=== PATIENT | female | born 1985 | race Caucasian/White ===

== ENCOUNTER → 2018-06-30 17:36 | Outpatient (CLI) | payer BC, SELFPAY ==
[2018-07-08 13:21] LABS: HPV HC, High Risk Negative (Negative)
== END ==
PROVIDERS: Referring Provider Obstetrics & Gynecology; Visit Provider Obstetrics & Gynecology
DX: Z12.4 Encounter for screening for malignant neoplasm of cervix (principal)
CPT/HCPCS: 87624; 88175; G0145

== ENCOUNTER → 2019-04-14 17:45 | Outpatient (CLI) | payer BC, SELFPAY ==
[2019-04-14 14:38] VITALS: BMI 35.4
== END ==
PROVIDERS: Visit Provider Obstetrics & Gynecology
DX: N76.0 Acute vaginitis (principal)
CPT/HCPCS: 87070; 87205

== ENCOUNTER → 2019-04-25 12:41 | Outpatient (CLI) | payer BC, SELFPAY ==
[2019-04-25 11:09] VITALS: BMI 35.4
== END ==
PROVIDERS: Referring Provider Obstetrics & Gynecology; Visit Provider Obstetrics & Gynecology
DX: O23.40 Unspecified infection of urinary tract in pregnancy, unspecified trimester (principal); B95.1 Streptococcus, group B, as the cause of diseases classified elsewhere; Z3A.00 Weeks of gestation of pregnancy not specified
CPT/HCPCS: 87077; 87086; 87088; 87186

== ENCOUNTER → 2019-06-09 12:13 | Outpatient (CLI) | payer BC, SELFPAY ==
[2019-05-24 08:47] VITALS: BMI 35.4
--- NOTE | 2019-06-09 12:17 | US_ITS ---
STUDY: SECOND AND THIRD TRIMESTER OBSTETRICAL ULTRASOUND REASON FOR EXAM: Female, 34 years old. Routine survey. LMP: Unknown. TECHNIQUE: Transabdominal TECHNICAL QUALITY: Adequate. PRIOR ULTRASOUND: None. FINDINGS: There is a single intrauterine fetus. The fetus is in an transverse lie with the head on the maternal left side. There is demonstrated cardiac activity with a heart rate of 133 bpm. There is a normal amniotic fluid volume. The placenta is posterior in location and is not low lying. There are Grade 1 placental changes. The cervix measures 6.3 cm in length. The bilateral adnexal regions are normal. BIOMETRY: BPD: 5.4 cm: 22 weeks, 4 days HC: 20.1 cm: 22 weeks, 2 days AC: 17.2 cm: 22 weeks, 1 days FL: 3.8 cm: 22 weeks, 3 days age by current US: 22 weeks, 3 days. SHAQ by current US: 10/10/2019. Estimated weight: 486 grams, +/- 71 grams, 56 %. Age by LMP: 22 weeks, 0 days. SHAQ by LMP: 10/13/2019. ANATOMY: Gender: Male Cranium: Normal lateral ventricles. Normal choroid plexus. Normal cerebellum. Normal cisterna magna. Normal face, nose and lips. Chest: Normal 4-chamber heart. Abdomen/Pelvis: Normal diaphragm. Normal stomach. Normal abdominal wall. Normal cord insertion. Normal 3 vessel cord. Normal kidneys. Normal bladder. Spine: Normal cervical spine. Normal thoracic spine. Normal lumbar spine. Normal sacrum. Extremities: Normal bilateral upper extremities. Normal bilateral lower extremities. US/OB Anatomy Scan IMPRESSION: Single live intrauterine at 22 weeks, 3 days by current ultrasound SHAQ of 10/10/2019. Heart rate of 133 bpm. No suspicious sonographic findings. Electronically Signed: Steffen Cerda MD at 14:03 EDT , Service support ,
== END ==
PROVIDERS: Family Provider Family Medicine; PCP Family Medicine; Referring Provider Obstetrics & Gynecology; Visit Provider Obstetrics & Gynecology
DX: O09.90 Supervision of high risk pregnancy, unspecified, unspecified trimester (principal)
CPT/HCPCS: 76805

== ENCOUNTER → 2019-07-20 09:46 | Outpatient (CLI) | payer BC, SELFPAY ==
[2019-07-20 09:23] VITALS: BMI 35.4
[2019-07-20 10:38] LABS: Absolute Lymphocyte Count 1.44 X10^3/uL (0.83-4.51); Absolute Neutrophil Count 8.8 X10^3/uL (2.0-7.7); Basophil# 0.03 X10^3/uL; Basophil% 0.3 % (0-1); Eosinophil# 0.14 X10^3/uL; Eosinophils% 1.3 % (0-5); Hematocrit 33.8 % (37-47); Hemoglobin 11.3 g/dL (12.0-15.0); Lymphocyte # 1.44 X10^3/ul (4.0); Mean Corp Hgb Conc 33.4 g/dL (32-36); Mean Corpuscular Hgb 28.3 pg (27.0-32.0); Mean Corpuscular Volume 84.7 fL (81-99); Mean Platelet Vol. 10.9 fl (6.2-12.0); Monocyte# 0.57 X10^3/uL; Monocyte% 5.1 % (0-10); NRBC Flagged by Analyzer 0 % (0-5); Neutrophil # 8.81 X10^3/uL (2.7-7.7); Neutrophil % 79.5 % (47-70); Platelet Count 167 K/mm3 (150-450); RBC Distribution Width CV 14.6 % (11.6-14.6); RBC Distribution Width SD 44.4 fl (35.1-43.9); Red Blood Count 3.99 M/mm3 (4.2-5.4); White Blood Count 11.1 K/mm3 (4.4-11.0)
[2019-07-20 10:47] LABS: Glucose Challenge Gest 1H 50g 119 mg/dL (70-140)
== END ==
PROVIDERS: Nurse Practitioner Women's Health; Family Provider Family Medicine; PCP Family Medicine; Referring Provider Obstetrics & Gynecology; Visit Provider Obstetrics & Gynecology
DX: O09.90 Supervision of high risk pregnancy, unspecified, unspecified trimester (principal); Z3A.00 Weeks of gestation of pregnancy not specified
CPT/HCPCS: 36415; 82950; 85025

== ENCOUNTER → 2019-09-16 17:04 | Outpatient (CLI) | payer BC, SELFPAY ==
[2019-09-16 08:37] VITALS: BMI 35.4
== END ==
PROVIDERS: Family Provider Family Medicine; PCP Family Medicine; Referring Provider Obstetrics & Gynecology; Visit Provider Obstetrics & Gynecology
DX: O09.90 Supervision of high risk pregnancy, unspecified, unspecified trimester (principal); Z3A.00 Weeks of gestation of pregnancy not specified
CPT/HCPCS: 87077; 87081; 87186

== ENCOUNTER 2019-10-19 19:10 | Outpatient (CLI) | payer BC, SELFPAY ==
[2019-10-13 08:33] VITALS: BMI 35.4
[2019-10-19 19:20] VITALS: BMI 40.8
--- NOTE | 2019-10-19 21:28 | OB.TRI.PN_ITS ---
Progress Notes Date of Service: 10/19/19 Progress Note: FHT: 135 Moderate variability reactive no decelerations category I tracing [place]: no regular Contractions postdates plan IOL tomorrow - Problem List (1) Post-dates Status: Acute Multi Select Codes - Urinary/Genital Urinary/Genital CPT Codes: 99532-13 non-stress test Interp
== END 2019-10-19 20:20 | disposition home or self-care (01) ==
LOC: WPOUT 19:17 → WP 19:18
PROVIDERS: PCP Family Medicine; Visit Provider Obstetrics & Gynecology
DX: O48.0 Post-term pregnancy (principal); Z3A.00 Weeks of gestation of pregnancy not specified
CPT/HCPCS: 59025; 59050; 99218; G0378

== ENCOUNTER 2019-10-20 07:00 | Inpatient (IN) | payer BC, SELFPAY ==
[2019-09-22 09:09] VITALS: BMI 35.4
[2019-10-19 19:20] VITALS: BMI 40.8
--- NOTE | 2019-10-20 04:33 | PCM.HPOB.BLA ---
- Problem List (1) Post-dates Status: Acute (2) Contraception management Status: Acute Qualifiers: Contraceptive encounter type: other general counseling and advice Qualified Code(s): Z30.09 - Encounter for other general counseling and advice on contraception Comment: IUD 6 wk pp- No PA required Kamila.H. 1009 07/21/19 (3) GBS (group B streptococcus) UTI complicating Status: Acute Qualifiers: Trimester: second trimester Qualified Code(s): O23.42 - Unspecified infection of urinary tract in , second trimester; B95.1 - Streptococcus, group B, as the cause of diseases classified elsewhere Comment: plan PCN in labor (4) Status: Acute Qualifiers: Weeks of gestation: 40 weeks Qualified Code(s): Z3A.40 - 40 weeks gestation of Comment: Foresight carrier screen- negative, low risk nipt, declines afp screening. US normal (5) Rh negative status during Status: Acute Qualifiers: Trimester: second trimester Qualified Code(s): O26.892 - Other specified related conditions, second trimester; Z67.91 - Unspecified blood type, Rh negative Comment: rhogam at 28 weeks and PRN (6) Supervision of high risk , antepartum Status: Acute Comment: PRR SHAQ 10/13/19 boy Long Kang ANDREAS RGI, FET/PGT History and Physical Date of Admission: 10/20/19 Intake Vital Signs 10/13/19 BMI 35.4 10/13/19 Height 5 ft 2 in 10/13/19 Weight: 223 lb 10/13/19 BMI 40.8 10/13/19 BP 120/88 H Intake Visit Reasons: 39 WK OB Chief Complaint: est ob Molecular Spectroscopist Required: No Is patient in pain?: No Allergies No Known Allergies Allergy (Verified 10/13/19 08:31) Medications docosahexanoic acid 200 mg capsule mg PO cap 04/14/19 history Confirmed 10/13/19 fluticasone propionate 50 mcg/actuation nasal spray,suspension 2 spray INTRANASAL DAILY 04/14/19 history Confirmed 10/13/19 Last Menstral Period: 01/06/19 Zika: Zika virus screening: Negative : No PFSH PFSH Surgical History Status post breast reduction (Resolved) Family History Mother Diabetes Grandmother Heart disease Social History (Updated 10/13/19 @ 09:03 by Linda Darby MD) Smoking Status: Never smoker alcohol intake: never substance use type: does not use caffeine: Yes what type of physical activity do you participate in: walking frequency: 3-4 times per week seatbelt use: always do you feel safe at home: Yes additional social history: [employer] Patient works at [employer] Pregancy History 1 Elective abortions Hx Para Spontaneous abortions Hx # Term Pregnancies Ectopic pregnancies Hx # Pregnancies Multiple births # of living children HPI 39 WK OB: Details: ALY DE JESUS is a 34 year old who presents for induction of labor secondary to postdates. Patient is a G1, P0 at 41 weeks. Patient denies any vaginal bleeding or loss of fluid admits good movement. She has had a complicated by infertility but is otherwise done well without any other complications. OB Visit SHAQ Calculator Estimated Delivery Date Method Current WG Current Estimate 10/13/19 LMP (Certain) 40w 0d Expected Delivery Route/Plan Labor Preferences- labor support person: Kang pain management: epidural cut cord/dad catch: cord : hx of breast reduction surgery PP control planned: iud at 6 week visit discussed possible routes of delivery and associated risks: discussed special requests:. Specific Issue/Plans flu vaccine: at employer tdap vaccine: given rhogam: given LARC form signed: yes movement and labor precautions reviewed. Problem list reviewed and updated with the most current plan of care details and appropriate orders placed. Relevant counseling for the gestational age provided. Continue routine care and follow up unless otherwise noted in visit notes/problem list details Initial Weight: 183 lb Date EGA Weight BP Urine Prot Glucose FHR FuHt Pres Mov CTX Dilation Effaced St Visit Note 04/25/19 15w 4d 191 lb (+8 lb) 108/74 150 16 no vb cramping, ANDREAS RGI 05/24/19 19w 5d 194 lb 2 oz (+11 lb 2 oz) 110/80 Negative Negative 140 20 Active absent no vb lof good fm no regular ctx 06/22/19 23w 6d 199 lb 4 oz (+16 lb 4 oz) 124/84 Negative Negative 154 24 Active absent No VB, LOF. Doing well 07/20/19 27w 6d 204 lb 8 oz (+21 lb 8 oz) 124/84 Negative Negative 148 28 Good FM, NO VB, lof. 08/05/19 30w 1d 206 lb (+23 lb) 120/74 Negative Negative 145 31 no vb lof godo fm childbirth classes 08/2008/19/19 32w 1d 206 lb 6 oz (+23 lb 6 oz) 118/80 Negative Negative 151 33 No Vb, LOF. Good FM 08/24/19 32w 6d 207 lb (+24 lb) 08/31/19 33w 6d 211 lb (+28 lb) 114/76 135 35 no vb lof good fm no reg ctx 09/16/19 36w 1d 214 lb (+31 lb) 111/78 Negative Negative 135 36 NO VB LOF GOOD FM NO REG CTX 09/22/19 37w 0d 219 lb (+36 lb) 110/70 Trace Negative 135 37 Cephalic SM- no vb lof good fm no regular ctx 09/30/19 38w 1d 221 lb (+38 lb) 118/84 Negative Negative 130 39 Cephalic 0 SM- no vb lof good fm no reg ctx 10/06/19 39w 0d 223 lb 4 oz (+40 lb 4 oz) 137/85 Negative Negative 135 40 Cephalic SM- no vb lof good fm no reg ctx 10/13/19 40w 0d 223 lb (+40 lb) 120/88 Trace Negative 135 41 Cephalic 0 SM- no vb lof good fm no regular ctx plan IOL 41 weeks Notes Visit Date: 10/13/19 ??No visit notes to display Visit Date: 10/06/19 ??No visit notes to display Visit Date: 09/30/19 ??No visit notes to display Visit Date: 09/22/19 ??No visit notes to display Visit Date: 09/16/19 ??NO VB LOF GOOD FM NO REG CTX ??Linda Darby MD on 09/16/19 Visit Date: 08/31/19 ??no vb lof good fm no reg ctx ??Linda Darby MD on 08/31/19 Visit Date: 08/24/19 ??No visit notes to display Visit Date: 08/19/19 ??No Vb, LOF. Good FM ??Irina Carvalho NP-C on 08/19/19 Visit Date: 08/05/19 ??no vb lof godo fm childbirth classes 08/20 ??Linda Darby MD on 08/05/19 Visit Date: 07/20/19 ??Good FM, NO VB, lof. ??COLETTE MendozaC on 07/20/19 Visit Date: 06/22/19 ??No VB, LOF. Doing well ??PHILIPPE Mendoza on 06/22/19 Visit Date: 05/24/19 ??no vb lof good fm no regular ctx ??Linda Darby MD on 05/24/19 Visit Date: 04/25/19 ??no vb cramping, ANDREAS RGI ??Linda Darby MD on 04/25/19 ACOG First Trimester First Trimester: Second Trimester Second Trimester: Signs and Symptoms of Labor, Selecting a care provider, Reproductive Life Planning, Care Planning, Tobacco Cessation, Depression/Anxiety and Intimate Partner Violence Third Trimester Third Trimester: Pain Management Plans, Labor support person(s), Immediate Larc, Movement Monitoring and Feeding Yes ; discussed Trial of Labor after Counseling or discussed Circumcision preference Diagnostics Diagnostics Diagnostics Glucose 1 Hr 50 gm 119 mg/dL (70-140) 07/20/19 Hgb 11.3 g/dL (12.0-15.0) L 07/20/19 Hct 33.8 % (37-47) L 07/20/19 Details: HIV: Urine Culture: Sequential Screen: NIPT Screen: ROS Const Reports system reviewed and no additional complaints, except as docu Card Reports system reviewed and no additional complaints, except as docu Resp Reports system reviewed and no additional complaints, except as docu GI Reports system reviewed and no additional complaints, except as docu, Reports nausea Reports system reviewed and no additional complaints, except as docu Musc Reports system reviewed and no additional complaints, except as docu Exam Const General: cooperative, healthy appearing, comfortable, anxious HENKY Head: normal to inspection Nose: external nose normal Face and sinus: normal facial exam Neck Neck: normal visual inspection, full ROM, no lymphadenopathy Thyroid: thyroid normal Chest Chest palpation & inspection: normal inspection of the chest Resp Effort & Inspection: normal respiratory effort GI Inspection: normal to inspection Palpation: soft, other (gravid uterus) Other: infant vertex and appropriate size for gestational age Other: Cervical Exam: Extrem General: pedal edema Results POC Urinalysis 2 Dip (Clinic) Office Urine Glucose Negative Last Edit by Marilee Israel on 10/13/19 08:36 Office Urine Protein Trace Last Edit by Marilee Israel on 10/13/19 08:36 Assessment & Plan Problems 1. Encounter for other general counseling or advice on contraception Z30.09 2. Rh negative status during in second trimester O26.892 3. 40 weeks gestation of Z3A.40 4. Supervision of high risk , antepartum O09.90 5. Group B Streptococcus urinary tract infection affecting in second trimester O23.42 Patient presents IOL, plan management for , pitocin/AROM after Nieto bulb. May need to start with Cytotec. Pain management: Plans epidural. GBS positive plan penicillin. Management of any complications: None I have reviewed the [facility] and made any clinically relevant updates. Orders Orders: POC Urinalysis 2 Dip (Clinic) Today Coding Level of Care Code OB Routine Diagnoses Encounter for other general counseling or advice on contraception Z30. ??Contraceptive encounter type: other general counseling and advice Rh negative status during in second trimester O26.892 ??Trimester: second trimester 40 weeks gestation of Z3A.40 ??Weeks of gestation: 40 weeks Supervision of high risk , antepartum O09.90 Group B Streptococcus urinary tract infection affecting in second trimester O23.42 ??Trimester: second trimester UPDATE- I have seen the patient and performed any clinically relevant updates to the history and physical exam. Linda Darby MD
[2019-10-20 07:28] VITALS: BMI 41.3
[2019-10-20 07:54] LABS: Absolute Lymphocyte Count 1.43 X10^3/uL (0.83-4.51); Absolute Neutrophil Count 6.2 X10^3/uL (2.0-7.7); Basophil# 0.03 X10^3/uL; Basophil% 0.4 % (0-1); Eosinophil# 0.05 X10^3/uL; Eosinophils% 0.6 % (0-5); Hematocrit 33.2 % (37-47); Hemoglobin 10.7 g/dL (12.0-15.0); Lymphocyte # 1.43 X10^3/ul (4.0); Lymphocyte % 17.5 % (19-41); Mean Corp Hgb Conc 32.2 g/dL (32-36); Mean Corpuscular Hgb 25.3 pg (27.0-32.0); Mean Corpuscular Volume 78.5 fL (81-99); Mean Platelet Vol. 11.3 fl (6.2-12.0); Monocyte# 0.44 X10^3/uL; Monocyte% 5.4 % (0-10); NRBC Flagged by Analyzer 0 % (0-5); Neutrophil # 6.18 X10^3/uL (2.7-7.7); Neutrophil % 75.6 % (47-70); Platelet Count 185 K/mm3 (150-450); RBC Distribution Width SD 45.4 fl (35.1-43.9); Red Blood Count 4.23 M/mm3 (4.2-5.4); White Blood Count 8.2 K/mm3 (4.4-11.0)
[2019-10-20] MEDS: Lactated Ringers 1,000 ML 50 ML IV (08:50)
[2019-10-20] MEDS: Oxytocin 30 units/NS 500 ml 30 UNITS/500 ML IV.SOLN IV (09:16)
[2019-10-20] MEDS: Lactated Ringers 500 ML 999 ML IV (11:30)
[2019-10-20] MEDS: ePHEDrine Sulfate 50 MG/ML Ampul 10 MG IM (11:48)
[2019-10-20] MEDS: fentaNYL-bupivacaine (epidural) 100 ML BAG EPIDURAL ×3 (12:04→21:01)
[2019-10-20] MEDS: Lactated Ringers 1,000 ML 100 ML IV (16:52)
[2019-10-20] MEDS: Lactated Ringers 1,000 ML 200 ML IV ×2 (18:05→23:00)
[2019-10-20] MEDS: Ondansetron 4 MG/2 ML Vial IV (22:46)
[2019-10-20] MEDS: 0.9% Saline Lock 10 ML Syringe IV (22:46)
[2019-10-21] VITALS (14 sets, daily range): BP systolic 123–138; BP diastolic 65–95; PULSE 80–105; RESP 14–20; TEMP 36.3–37.5; O2SAT 97–100
[2019-10-21] MEDS: fentaNYL-bupivacaine (epidural) 100 ML BAG EPIDURAL ×3 (01:44→12:07)
[2019-10-21] MEDS: Lactated Ringers 1,000 ML 125 ML IV ×2 (05:08→13:20)
[2019-10-21] MEDS: Ondansetron 4 MG/2 ML Vial IV (05:24)
[2019-10-21] MEDS: Mag Hydrox/Al Hydrox/Simeth 30 ML UDC PO ×2 (05:35→10:12)
[2019-10-21] MEDS: Acetaminophen 325 MG Tablet PO (05:35)
[2019-10-21] MEDS: Sodium Citrate/Citric Acid 30 ML UDC PO (14:35)
--- NOTE | 2019-10-21 14:48 | PCM.PN.BLA ---
Progress Note fht 150s moderate variability reactive occasional mild variable decel. cat II tracing overall reassuring. reassessed patient multiple times during pushing, has been pushing for over 4 hours with arrest of descent at +1 to +2 station. Discussed with patient recommendation for proceeding with primary and patient agreeable. Patient counseled regarding risk benefits and alternatives of procedure and agrees to proceed with . Suspect cephalopelvic disproportion
[2019-10-21] MEDS: Cefazolin 2 GM in 0.9% Normal Saline 100 ML IV (14:50)
[2019-10-21] MEDS: Methylergonovine 0.2 MG/ML Ampul IM (15:13)
[2019-10-21] MEDS: Oxytocin 30 units/NS 500 ml 30 UNITS/500 ML IV.SOLN 167 UNITS IV (16:20)
--- NOTE | 2019-10-21 17:55 | OP.PCM_ITS ---
Problem List (1) Post-dates Status: Acute (2) Contraception management Status: Acute Qualifiers: Contraceptive encounter type: other general counseling and advice Qualified Code(s): Z30.09 - Encounter for other general counseling and advice on contraception Comment: IUD 6 wk pp- No PA required Kamila.H. 1009 07/21/19 (3) GBS (group B streptococcus) UTI complicating Status: Acute Qualifiers: Trimester: second trimester Qualified Code(s): O23.42 - Unspecified infection of urinary tract in , second trimester; B95.1 - Streptococcus, group B, as the cause of diseases classified elsewhere Comment: plan PCN in labor (4) Status: Acute Qualifiers: Weeks of gestation: 40 weeks Qualified Code(s): Z3A.40 - 40 weeks gestation of Comment: Foresight carrier screen- negative, low risk nipt, declines afp screening. US normal (5) Rh negative status during Status: Acute Qualifiers: Trimester: second trimester Qualified Code(s): O26.892 - Other specified related conditions, second trimester; Z67.91 - Unspecified blood type, Rh negative Comment: rhogam at 28 weeks and PRN (6) Supervision of high risk , antepartum Status: Acute Comment: PRR SHAQ 10/13/19 boy Long Kang ANDREAS RGI, FET/PGT Delivery Classification: VICENTE Final SHAQ: 10/13/19 Gestational age: 41 Weeks and 0 Days strategic debriefing specialist: Lizette Brown Type of Anesthesia:: General Date of Procedure: 10/21/19 Pre-Operative Diagnosis: iol postdates, arrest of descent Post-Operative Diagnosis: same plus CPD Indications for : Failure to Progress, Failure of Descent, Suspected cephalopelvic disproportion Description of Procedure: Patient presented for induction of labor secondary to postdates. She was 41 weeks and Nieto bulb and Pitocin were initially utilized and after the Nieto bulb came out patient was ruptured after several hours at home cervical change. Pitocin was continued and a Pitocin washout was performed and then restarted and patient made change to 9 cm. After 2 hours patient was still 9 cm but then became complete within several hours. Patient pushed for half an hour and was very tired and therefore she labored down for an hour. She then began pushing again for a total of 4 hours and station was still at a +1 to +2 station with significant It. Arrest of descent was diagnosed and CPD was suspected and therefore the patient was consented for a primary low transverse and she agreed. Patient had had an epidural that had been replaced twice and upon dosing it up was found to be inadequate and therefore she was put under general anesthesia after the patient was placed in the dorsal supine position with leftward tilt. Patient was prepped and draped in the normal sterile fashion. Pfannenstiel skin incision was made with the scalpel and carried through to the underlying layer of fascia with the scalpel. Fascia was nicked in the midline and the incision extended laterally. The rectus bellies were dissected off superiorly and inferiorly with out complication both sharply and bluntly. The peritoneum was entered digitally. The incision was stretched and a low transverse uterine incision was made with the scalpel. The patient's anatomy was noted be very small with a contracted pelvis and therefore CPD was diagnosed. Bladder was very close to the lower uterine segment but was out of the area of the incision. The infant's head was delivered atraumatically followed by the anterior and posterior shoulders without complication the rest of the delivered. The cord was clamped and cut and the infant was handed off to awaiting nurse. The placenta was delivered spontaneously immediately following and was noted to be intact and have a three-vessel cord. The uterus was exteriorized cleared of all clots and debris, and the incision was closed in a single layer closure using #1 Monocryl. The ovaries and fallopian tubes were noted to be within normal limits. The uterus was returned to the maternal abdomen and gutters were cleared of all clots and debris. The peritoneum was closed with 3-0 Monocryl in a running fashion. Gloves were changed prior to fascial closure. Fascia was closed with 0 PDS in a running fashion. Subcutaneous tissue was copiously irrigated and the skin was closed with 3-0 Monocryl in a subcuticular fashion. Mepilex dressing was applied without complication. Patient was taken to recovery in stable condition. It was discussed with the patient that based on the clinical information obtained during this encounter, combined with her history, at this time I would recommend for future deliveries if further pregnancies are desired. Amniotic Membrane Rupture Type: Artificial Amniotic Fluid Description: Clear Placenta Disposition: [facility] Drain: Nieto to straight drain Cord Entanglement: None Cord Vessel Description: 3 Vessels Esitmated Blood Loss (ml): 900 Gender: Male Antibiotic Given: Ancef 2 grams IV x1, Zithromax 500 mg/5 mL X1 - stopped partially through due to local erythema and itching Pt instructed on risks of surgery: Bleeding, Anesthesia Risks, Infection, Injury to surrounding structure(s) including bowel and bladder Complications: None - Admit VTE Documentation VTE Present on Admission: No Multi Select Codes - Urinary/Genital Urinary/Genital CPT Codes: 53080 Delivery [facility]
--- NOTE | 2019-10-21 19:28 | NURSING ---
epidural catheter removed. blue tip intact. pt tolerated well
[2019-10-21] MEDS: Lactated Ringers 1,000 ML 100 ML IV (19:56)
[2019-10-21] MEDS: Ketorolac 30 MG/ML Syringe IV (21:47)
[2019-10-21] MEDS: DiphenhydrAMINE 50 MG/ML Syringe 25 MG IV (23:24)
[2019-10-22] VITALS (11 sets, daily range): BP systolic 98–132; BP diastolic 57–78; PULSE 76–95; RESP 12–16; TEMP 36.8–37.6; O2SAT 96–100
[2019-10-22] MEDS: Ketorolac 30 MG/ML Syringe IV ×4 (03:47→21:31)
[2019-10-22] MEDS: Enoxaparin 40 MG/0.4 ML Syringe SC ×2 (03:48→15:50)
[2019-10-22] MEDS: 0.9% Saline Lock 10 ML Syringe IV ×4 (04:40→21:32)
[2019-10-22 05:23] LABS: Hematocrit 27.6 % (37-47); Hemoglobin 8.7 g/dL (12.0-15.0); Mean Corp Hgb Conc 31.5 g/dL (32-36); Mean Corpuscular Hgb 25.1 pg (27.0-32.0); Mean Corpuscular Volume 79.5 fL (81-99); Mean Platelet Vol. 11.2 fl (6.2-12.0); Platelet Count 183 K/mm3 (150-450); RBC Distribution Width CV 16.7 % (11.6-14.6); RBC Distribution Width SD 47.7 fl (35.1-43.9); Red Blood Count 3.47 M/mm3 (4.2-5.4); White Blood Count 21.1 K/mm3 (4.4-11.0)
--- NOTE | 2019-10-22 09:59 | PCM.PN.OB ---
Subjective: doing well no complaints pain controlled no CP SOB N V ambulating well tolerating po lochia moderate, going well - Physical Exam Vitals/I&O's: Vital Signs Temp Pulse Resp BP Pulse Ox 98.2 F 84 16 107/63 98 10/22/19 03:49 10/22/19 06:00 10/22/19 06:00 10/22/19 04:57 10/22/19 06:00 Oxygen Delivery Method Room Air Weight: 226 lb Body Mass Index (BMI) 41.3 Intake and Output for Last 24 Hours 10/20/19 10/21/19 10/22/19 23:59 23:59 23:59 Intake Total 3056.19 / 3056.19 5274.32 / 5274.32 1675 / 1675 Output Total 975 / 975 700 / 700 Balance 3056.19 / 3056.19 4299.32 / 4299.32 975 / 975 General: Alert, Oriented x3 Laboratory Results 10/22/19 04:55: WBC 21.1 H, RBC 3.47 L, Hgb 8.7 L, Hct 27.6 L, MCV 79.5 L, MCH 25.1 L, MCHC 31.5 L, RDW Std Deviation 47.7 H, RDW Coeff of Melissa 16.7 H, Plt Count 183, MPV 11.2 10/22/19 04:55: Screen NEGATIVE, Baby's Blood Type O POSITIVE, Baby's [place] NEGATIVE Current Medications Acetaminophen (Tylenol) 1,000 mg PO Q8H PRN PRN Reason: Pain Score 1-3/10 Bisacodyl (Dulcolax) 10 mg RECTAL UD PRN PRN Reason: If no BM Enoxaparin Sodium (Lovenox) 40 mg SC BID@0330,1530 [facility] Hydrocortisone (Hytone) 1 applic TOPICAL TID PRN PRN; Protocol PRN Reason: Discomfort Naloxone HCl 4 mg/ Dextrose 504 mls @ 0 mls/hr IV .Q0M PRN; Protocol PRN Reason: Respiratory depression Ketorolac Tromethamine (Toradol) 30 mg IV Q6H [place] Stop: 10/23/19 15:31 Last Admin: 10/22/19 09:52 Dose: 30 mg Documented by: Methylergonovine Maleate (Methergine) 0.2 mg IM X1 PRN PRN Reason: Uterine Atony Last Admin: 10/21/19 15:13 Dose: 0.2 mg Documented by: Nalbuphine HCl (Nubain) 5 mg IV Q3H PRN PRN PRN Reason: ITCHING Stop: 10/22/19 16:20 Naloxone HCl (Narcan) 0.02 mg IV Q1M PRN PRN Reason: RR <10 and pt unresponsive Naproxen (Naprosyn) 250 - 500 mg PO Q8H PRN PRN PRN Reason: Pain Score 1-3/10 Ondansetron HCl (Zofran) 4 mg IV Q4H PRN PRN PRN Reason: Nausea Oxycodone HCl (Oxyir) 5 - 10 mg PO Q4H PRN PRN PRN Reason: Pain Score 4-10/10 Prochlorperazine Edisylate (Compazine Iv) 10 mg IV Q6H PRN PRN PRN Reason: NAUSEA Senna/Docusate Sodium (Senokot-S, Ele-Colace) 0 tablet PO DAILY PRN PRN Reason: Constipation Simethicone (Mylicon) 80 mg PO PCHS PRN PRN Reason: Indigestion/stomach pain Sodium Chloride () 5 - 15 ml IV UD PRN PRN Reason: SALINE FLUSH Last Admin: 10/22/19 09:54 Dose: 5 ml Documented by: Medical Necessity - Tobacco Use Smoking Status: Never smoker Assessment/Plan All Active Problems (Last Reviewed 10/13/19 @ 08:31 by Marilee Israel) Post-dates (Acute) Contraception management (Acute) Rh negative status during (Acute) (Acute) Supervision of high risk , antepartum (Acute) GBS (group B streptococcus) UTI complicating (Acute) Positive GBS test (Resolved) s/p LTCS PPD # 1 1. routine post care 2. breast feeding- support given 3. rh negative- rhogam PRN 4. rubella immune
--- NOTE | 2019-10-22 18:13 | NURSING ---
1600 Breast pump given with instructions. Pumps both breasts, approx 5 min each. No colostrum noted.
[2019-10-23 02:20] VITALS: BP 113/68; PULSE 71; RESP 16; TEMP 36.7
[2019-10-23] MEDS: Ketorolac 30 MG/ML Syringe IV ×3 (03:40→15:31)
[2019-10-23] MEDS: 0.9% Saline Lock 10 ML Syringe IV ×3 (03:40→15:32)
[2019-10-23] MEDS: Enoxaparin 40 MG/0.4 ML Syringe SC ×2 (03:42→15:32)
[2019-10-23 07:58] VITALS: BP 122/79; PULSE 74; RESP 18; TEMP 36.2; O2SAT 97
--- NOTE | 2019-10-23 09:02 | PN.OBGYN_ITS ---
Subjective: doing well no complaints pain controlled no CP SOB N V ambulating well tolerating po lochia moderate, going well - Physical Exam Vitals/I&O's: Vital Signs Temp Pulse Resp BP Pulse Ox 97.2 F L 74 18 122/79 H 97 10/23/19 07:58 10/23/19 07:58 10/23/19 07:58 10/23/19 07:58 10/23/19 07:58 Oxygen Delivery Method Room Air Weight: 226 lb Body Mass Index (BMI) 41.3 Intake and Output for Last 24 Hours 10/21/19 10/22/19 10/23/19 23:59 23:59 23:59 Intake Total 5274.32 / 5274.32 1675 / 1675 Output Total 975 / 975 1100 / 1100 Balance 4299.32 / 4299.32 575 / 575 General: Alert, Oriented x3 Current Medications Acetaminophen (Tylenol) 1,000 mg PO Q8H PRN PRN Reason: Pain Score 1-3/10 Bisacodyl (Dulcolax) 10 mg RECTAL UD PRN PRN Reason: If no BM Enoxaparin Sodium (Lovenox) 40 mg SC BID@0330,1530 [facility] Last Admin: 10/23/19 03:42 Dose: 40 mg Documented by: Hydrocortisone (Hytone) 1 applic TOPICAL TID PRN PRN; Protocol PRN Reason: Discomfort Naloxone HCl 4 mg/ Dextrose 504 mls @ 0 mls/hr IV .Q0M PRN; Protocol PRN Reason: Respiratory depression Ketorolac Tromethamine (Toradol) 30 mg IV Q6H [facility] Stop: 10/23/19 15:31 Last Admin: 10/23/19 03:40 Dose: 30 mg Documented by: Methylergonovine Maleate (Methergine) 0.2 mg IM X1 PRN PRN Reason: Uterine Atony Last Admin: 10/21/19 15:13 Dose: 0.2 mg Documented by: Naloxone HCl (Narcan) 0.02 mg IV Q1M PRN PRN Reason: RR <10 and pt unresponsive Naproxen (Naprosyn) 250 - 500 mg PO Q8H PRN PRN PRN Reason: Pain Score 1-3/10 Ondansetron HCl (Zofran) 4 mg IV Q4H PRN PRN PRN Reason: Nausea Oxycodone HCl (Oxyir) 5 - 10 mg PO Q4H PRN PRN PRN Reason: Pain Score 4-10/10 Prochlorperazine Edisylate (Compazine Iv) 10 mg IV Q6H PRN PRN PRN Reason: NAUSEA Senna/Docusate Sodium (Senokot-S, Ele-Colace) 0 tablet PO DAILY PRN PRN Reason: Constipation Simethicone (Mylicon) 80 mg PO PCHS PRN PRN Reason: Indigestion/stomach pain Sodium Chloride () 5 - 15 ml IV UD PRN PRN Reason: SALINE FLUSH Last Admin: 10/23/19 03:40 Dose: 10 ml Documented by: Medical Necessity - Tobacco Use Smoking Status: Never smoker Assessment/Plan All Active Problems (Last Reviewed 10/13/19 @ 08:31 by Marilee Israel) Post-dates (Acute) Contraception management (Acute) Rh negative status during (Acute) (Acute) Supervision of high risk , antepartum (Acute) GBS (group B streptococcus) UTI complicating (Acute) Positive GBS test (Resolved) s/p LTCS PPD # 2 1. routine post care 2. breast feeding- support given 3. rh negative- rhogam PRN 4. rubella immune
--- NOTE | 2019-10-23 09:04 | DCINST_ITS ---
Discharge Diet: No Restrictions Discharge Activity: May Not Drive - for 2 weeks, May not drive while taking narcotic pain medications., May Shower, May Take a Tub Bath - in 7 days May resume sexual activity in: 4-6 weeks Lifting Restrictions: 20 pounds Additional Activity Instructions:: Nothing in the vagina for 4-6 weeks. You may return to work/school in 6 weeks. Call your doctor if your incision/area has: Continuous Slow Oozing, Sudden Increased Bleeding, Increased Pain/ Swelling, Increased Redness, Foul Smelling Discharge Call your doctor if you observe: Fever of 101 or Higher, Using more than one pad per hour - for 2 hours Suture Line Care: Avoid Pulling/Pushing, Avoid Pinching/Bending Cleanse incision/area with: Keep Dressing Clean & Dry Additional Instructions: If you experience any of the following, contact your healthcare provider. * Bleeding that soaks a pad every hour for 2 hours * Fever 100.4 or higher * Unrelieved incision or abdominal pain * Swelling, redness, discharge or bleeding from your incision or episiotomy site * Your incision begins to separate * Problems urinating (including inability to urinate or burning while urinating). * Visual changes * Severe headache * Flu-like symptoms * Pain or redness in one of both of your breasts * Pain, warmth, tenderness or swelling in your legs, especially the calf area * Frequent nausea and vomiting * Symptoms of depression or anxiety If you experience any of the following, call 911 or go to the nearest Emergency Room. * Chest pain * Problems breathing * Seizure activity * Partial or complete paralysis of a body part, slurred speech, weakness or drooping of the face, or a sudden inability to walk or hold your balance Allergies/Adverse Reactions: Allergies No Known Allergies Allergy (Verified 10/19/19 19:59) Medications to take at Discharge Vits [Prenatabs FA] 1 tab PO DAILY 10/19/19 Naproxen [Naprosyn] 250 - 500 mg PO Q8H PRN PRN #30 tab 10/23/19 Oxycodone HCl/Acetaminophen [Percocet 5-325] 1 - 2 tablet PO Q6H PRN PRN 7 Days #28 tablet 10/23/19 The following prescriptions were given: Naproxen [Naprosyn] 250 - 500 mg PO Q8H PRN PRN #30 tab PRN Reason: MILD PAIN Transmission Status: Pending to [id number] Oxycodone HCl/Acetaminophen [Percocet 5-325] 1 - 2 tablet PO Q6H PRN PRN 7 Days #28 tablet PRN Reason: Moderate-Severe pain Transmission Status: [facility] Follow-Up: Call to make an appointment with your doctor for an incision check in 1-2 weeks. You will also need a 6 week post- follow up appointment. Test results from this visit will be discussed in further detail at your follow- up appointment, if applicable. Please Follow Up With: Linda Darby MD - Call to make an appointment for an incision check in 1-2 [phone] When: You will need a post- check in 6 weeks. Primary Care Physician: Xander Padilla [Primary Care Provider] -
--- NOTE | 2019-10-23 10:00 | NURSING ---
after much discussion with mother, she has decided to stay another night. RN had discussed this with SM prior, ok to cancel dc
[2019-10-23 13:26] VITALS: BP 116/78; PULSE 78; RESP 18; TEMP 36.9
[2019-10-23 20:27] VITALS: BP 136/90; PULSE 72; RESP 16; TEMP 37.3
[2019-10-23] MEDS: Naproxen 250 MG Tablet PO (20:47)
[2019-10-24 01:21] VITALS: BP 99/63; PULSE 69; RESP 14; TEMP 36.3
[2019-10-24] MEDS: Enoxaparin 40 MG/0.4 ML Syringe SC (04:16)
[2019-10-24] MEDS: Naproxen 250 MG Tablet PO (07:28)
[2019-10-24 07:56] VITALS: BP 137/90; PULSE 70; RESP 16; TEMP 36.8
--- NOTE | 2019-10-24 08:24 | PCM.PN.OB ---
Subjective: Doing well, no complaints.Pain controlled. Denies CP, SOB, N,V. Ambulating well, tolerating po. Lochia moderate, going well. - Physical Exam Vitals/I&O's: Vital Signs Temp Pulse Resp BP Pulse Ox 98.3 F 70 16 137/90 H 97 10/24/19 07:56 10/24/19 07:56 10/24/19 07:56 10/24/19 07:56 10/23/19 07:58 Oxygen Delivery Method Room Air Weight: 226 lb Body Mass Index (BMI) 41.3 Intake and Output for Last 24 Hours 10/22/19 10/23/19 10/24/19 23:59 23:59 23:59 Intake Total 1675 / 1675 1000 / 1000 Output Total 1100 / 1100 Balance 575 / 575 1000 / 1000 General: Alert, Oriented x3 Abdomen: Soft, Non-Distended, - - FF below U. Dressing dry and intact Current Medications Acetaminophen (Tylenol) 1,000 mg PO Q8H PRN PRN Reason: Pain Score 1-3/10 Bisacodyl (Dulcolax) 10 mg RECTAL UD PRN PRN Reason: If no BM Enoxaparin Sodium (Lovenox) 40 mg SC BID@0330,1530 CATINA Last Admin: 10/24/19 04:16 Dose: 40 mg Documented by: Hydrocortisone (Hytone) 1 applic TOPICAL TID PRN PRN; Protocol PRN Reason: Discomfort Naloxone HCl 4 mg/ Dextrose 504 mls @ 0 mls/hr IV .Q0M PRN; Protocol PRN Reason: Respiratory depression Methylergonovine Maleate (Methergine) 0.2 mg IM X1 PRN PRN Reason: Uterine Atony Last Admin: 10/21/19 15:13 Dose: 0.2 mg Documented by: Naloxone HCl (Narcan) 0.02 mg IV Q1M PRN PRN Reason: RR <10 and pt unresponsive Naproxen (Naprosyn) 250 - 500 mg PO Q8H PRN PRN PRN Reason: Pain Score 1-3/10 Last Admin: 10/24/19 07:28 Dose: 500 mg Documented by: Ondansetron HCl (Zofran) 4 mg IV Q4H PRN PRN PRN Reason: Nausea Oxycodone HCl (Oxyir) 5 - 10 mg PO Q4H PRN PRN PRN Reason: Pain Score 4-10/10 Prochlorperazine Edisylate (Compazine Iv) 10 mg IV Q6H PRN PRN PRN Reason: NAUSEA Senna/Docusate Sodium (Senokot-S, Ele-Colace) 0 tablet PO DAILY PRN PRN Reason: Constipation Simethicone (Mylicon) 80 mg PO PCHS PRN PRN Reason: Indigestion/stomach pain Sodium Chloride () 5 - 15 ml IV UD PRN PRN Reason: SALINE FLUSH Last Admin: 10/23/19 15:32 Dose: 10 ml Documented by: Medical Necessity - Tobacco Use Smoking Status: Never smoker Assessment/Plan All Active Problems (Last Reviewed 10/13/19 @ 08:31 by Marilee Israel) Post-dates (Acute) Contraception management (Acute) Rh negative status during (Acute) (Acute) Supervision of high risk , antepartum (Acute) GBS (group B streptococcus) UTI complicating (Acute) Positive GBS test (Resolved) s/p LTCS PPD # 3 1. routine post care 2. breast feeding- support given 3. rh negative 4. rubella immune 5. home today
--- NOTE | 2019-10-24 08:25 | PCM.DC.SUM ---
Discharge Date and Diagnosis Date of Admission: 10/20/19 Date of Discharge: 10/24/19 Hospital Course and Treatment Consultations 10/20/19 07:37 Consult: Anesthesia Routine Comment: Reason For Exam: Labor Operations: - - Summary of Care Provided: The patient is a 34 year old F primary LTCS for CPD. Routine postop care. Regular diet, no restrictions. Home today. - Physical Exam Vitals/I&O's: Vital Signs Temp Pulse Resp BP Pulse Ox 98.3 F 70 16 137/90 H 97 10/24/19 07:56 10/24/19 07:56 10/24/19 07:56 10/24/19 07:56 10/23/19 07:58 Oxygen Delivery Method Room Air Weight: 226 lb Body Mass Index (BMI) 41.3 Intake and Output for Last 24 Hours 10/22/19 10/23/19 10/24/19 23:59 23:59 23:59 Intake Total 1675 / 1675 1000 / 1000 Output Total 1100 / 1100 Balance 575 / 575 1000 / 1000 Current Medications Acetaminophen (Tylenol) 1,000 mg PO Q8H PRN PRN Reason: Pain Score 1-3/10 Bisacodyl (Dulcolax) 10 mg RECTAL UD PRN PRN Reason: If no BM Enoxaparin Sodium (Lovenox) 40 mg SC BID@0330,1530 CATINA Last Admin: 10/24/19 04:16 Dose: 40 mg Documented by: Hydrocortisone (Hytone) 1 applic TOPICAL TID PRN PRN; Protocol PRN Reason: Discomfort Naloxone HCl 4 mg/ Dextrose 504 mls @ 0 mls/hr IV .Q0M PRN; Protocol PRN Reason: Respiratory depression Methylergonovine Maleate (Methergine) 0.2 mg IM X1 PRN PRN Reason: Uterine Atony Last Admin: 10/21/19 15:13 Dose: 0.2 mg Documented by: Naloxone HCl (Narcan) 0.02 mg IV Q1M PRN PRN Reason: RR <10 and pt unresponsive Naproxen (Naprosyn) 250 - 500 mg PO Q8H PRN PRN PRN Reason: Pain Score 1-3/10 Last Admin: 10/24/19 07:28 Dose: 500 mg Documented by: Ondansetron HCl (Zofran) 4 mg IV Q4H PRN PRN PRN Reason: Nausea Oxycodone HCl (Oxyir) 5 - 10 mg PO Q4H PRN PRN PRN Reason: Pain Score 4-10/10 Prochlorperazine Edisylate (Compazine Iv) 10 mg IV Q6H PRN PRN PRN Reason: NAUSEA Senna/Docusate Sodium (Senokot-S, Ele-Colace) 0 tablet PO DAILY PRN PRN Reason: Constipation Simethicone (Mylicon) 80 mg PO PCHS PRN PRN Reason: Indigestion/stomach pain Sodium Chloride () 5 - 15 ml IV UD PRN PRN Reason: SALINE FLUSH Last Admin: 10/23/19 15:32 Dose: 10 ml Documented by: Discharge Diet: No Restrictions Discharge Activity: May Not Drive - for 2 weeks, May not drive while taking narcotic pain medications., May Shower, May Take a Tub Bath - in 7 days May resume sexual activity in: 4-6 weeks Additional Activity Instructions:: Nothing in the vagina for 4-6 weeks. You may return to work/school in 6 weeks. Call your doctor if your incision/area has: Continuous Slow Oozing, Sudden Increased Bleeding, Increased Pain/ Swelling, Increased Redness, Foul Smelling Discharge Call your doctor if you observe: Fever of 101 or Higher, Using more than one pad per hour - for 2 hours Suture Line Care: Avoid Pulling/Pushing, Avoid Pinching/Bending Cleanse incision/area with: Keep Dressing Clean & Dry Home Medications: Medications to take at Discharge Vits [Prenatabs FA] 1 tab PO DAILY 10/19/19 Naproxen [Naprosyn] 250 - 500 mg PO Q8H PRN PRN #30 tab 10/23/19 Oxycodone HCl/Acetaminophen [Percocet 5-325] 1 - 2 tab PO Q6H PRN PRN 7 Days #28 tab 10/23/19 Following Prescrptions Were Given to Patient: Naproxen [Naprosyn] 250 - 500 mg PO Q8H PRN PRN #30 tab PRN Reason: MILD PAIN Transmission Status: Received by [facility] [id number] Oxycodone HCl/Acetaminophen [Percocet 5-325] 1 - 2 tab PO Q6H PRN PRN 7 Days #28 tab PRN Reason: Moderate-Severe pain Transmission Status: Received by [facility] [id number] Primary Care Physician: Xander Padilla [Primary Care Provider] - Please Follow Up With: Linda Darby MD - Call to make an appointment for an incision check in 1-2 [phone] When: You will need a post- check in 6 weeks. Medical Necessity - Tobacco Use Smoking Status: Never smoker Meaningful Use Info Meaningful Use Diagnoses (Choose all that apply): None applicable
== END 2019-10-24 11:25 | disposition home or self-care (01) | DRG 787 ==
PROVIDERS: Admitting Provider Obstetrics & Gynecology; Family Provider Family Medicine; PCP Family Medicine; Referring Provider Obstetrics & Gynecology; Visit Provider Obstetrics & Gynecology
DX: O76 Abnormality in fetal heart rate and rhythm complicating labor and delivery (principal); O23.42 Unspecified infection of urinary tract in pregnancy, second trimester; O36.0120 Maternal care for anti-D [Rh] antibodies, second trimester, not applicable or unspecified; O32.4XX0 Maternal care for high head at term, not applicable or unspecified; B95.1 Streptococcus, group B, as the cause of diseases classified elsewhere; O62.1 Secondary uterine inertia; O33.9 Maternal care for disproportion, unspecified; O48.0 Post-term pregnancy; O99.824 Streptococcus B carrier state complicating childbirth; Z3A.41 41 weeks gestation of pregnancy; Z37.0 Single live birth
CPT/HCPCS: 59025; 59050; 85025; 85027; 85461; 86850; 86900; 86901; 90384; 99218; J7120; A4216; G0378; J2405; J2790

== ENCOUNTER → 2021-07-30 | Outpatient (CLI) | payer OTHER, SELFPAY ==
[2021-07-30 13:58] LABS: Amphetamine Urine VISTA NEGATIVE (<1000 ng/mL); Barbiturate Urine VISTA NEGATIVE (< 200 ng/mL); Benzodiazepine Urine VISTA NEGATIVE (< 200 ng/mL); Cocaine Urine VISTA NEGATIVE (< 300 ng/mL); Ecstacy Urine VISTA NEGATIVE (< 500 ng/mL); Methadone Urine VISTA NEGATIVE (< 300 ng/mL); PCP Urine VISTA NEGATIVE (< 25 ng/mL); THC Urine VISTA NEGATIVE (< 50 ng/mL); Vista UDS pH Range 6
== END | disposition home or self-care (01) ==
PROVIDERS: PCP Family Medicine; Referring Provider Nurse Practitioner Women's Health; Visit Provider Nurse Practitioner Women's Health
DX: Z34.91 Encounter for supervision of normal pregnancy, unspecified, first trimester (principal)
CPT/HCPCS: 80307; 87086; 87088

== ENCOUNTER → 2021-08-26 | Outpatient (CLI) | payer OTHER, SELFPAY ==
[2021-08-26 19:15] LABS: Chlamydia Trachomatis by PCR Negative (Negative); Neisserai gonorrhoeae by PCR Negative (Negative); Probe Check PASS; Sample Adequacy Control PASS; Specimen Processing Control PASS
== END | disposition home or self-care (01) ==
LOC: LABSPEC 16:20
PROVIDERS: PCP Family Medicine; Referring Provider Obstetrics & Gynecology; Visit Provider Obstetrics & Gynecology
DX: Z34.92 Encounter for supervision of normal pregnancy, unspecified, second trimester (principal)
CPT/HCPCS: 87491; 87591

== ENCOUNTER → 2021-09-24 12:22 | Outpatient (CLI) | payer OTHER, SELFPAY ==
[2021-09-24 13:36] LABS: Absolute Lymphocyte Count 1.39 X10^3/uL (0.83-4.51); Absolute Neutrophil Count 9.4 X10^3/uL (2.0-7.7); Basophil# 0.03 X10^3/uL; Basophil% 0.3 % (0-1); Eosinophil# 0.06 X10^3/uL; Eosinophils% 0.5 % (0-5); Hematocrit 37.6 % (37-47); Hemoglobin 12.8 g/dL (12.0-15.0); Lymphocyte # 1.39 X10^3/ul (0.83-4.51); Lymphocyte % 12.2 % (19-41); Mean Corpuscular Hgb 29.7 pg (27.0-32.0); Mean Corpuscular Volume 87.2 fL (81-99); Mean Platelet Vol. 10.9 fl (6.2-12.0); Monocyte# 0.49 X10^3/uL; Monocyte% 4.3 % (0-10); NRBC Flagged by Analyzer 0 % (0-5); Neutrophil # 9.37 X10^3/uL (2.7-7.7); Neutrophil % 81.9 % (47-70); Platelet Count 180 K/mm3 (150-450); RBC Distribution Width CV 13.2 % (11.6-14.6); Red Blood Count 4.31 M/mm3 (4.2-5.4); White Blood Count 11.4 K/mm3 (4.4-11.0)
[2021-09-24 14:14] LABS: Glucose Challenge Gest 1H 50g 87 mg/dL (70-140)
== END ==
PROVIDERS: PCP Family Medicine; Referring Provider Obstetrics & Gynecology; Visit Provider Obstetrics & Gynecology
DX: Z34.92 Encounter for supervision of normal pregnancy, unspecified, second trimester (principal)
CPT/HCPCS: 36415; 82950; 85025; 86850; 86900; 86901

== ENCOUNTER 2021-10-10 10:37 | Outpatient (CLI) | payer OTHER, SELFPAY | END 2021-10-10 23:59 | disposition short-term general hospital (02) | LOC: PAVLAB 10:39 | PROVIDERS: PCP Family Medicine; Referring Provider Obstetrics & Gynecology; Visit Provider Obstetrics & Gynecology | DX: Z34.92 Encounter for supervision of normal pregnancy, unspecified, second trimester (principal) | CPT/HCPCS: 36415; 86850; 86900; 86901 ==

== ENCOUNTER 2021-12-19 09:55 | Inpatient (IN) | payer OTHER, SELFPAY ==
[2021-12-19] VITALS (71 sets, daily range): BP systolic 107–155; BP diastolic 55–93; PULSE 62–128; RESP 14–18; TEMP 36.2–37; O2SAT 81–100; BMI 39.4
[2021-12-19] MEDS: Lactated Ringers 1,000 ML 999 ML IV ×2 (10:10→13:55)
[2021-12-19 10:31] LABS: Absolute Lymphocyte Count 1.58 X10^3/uL (0.83-4.51); Absolute Neutrophil Count 7.7 X10^3/uL (2.0-7.7); Basophil# 0.02 X10^3/uL; Basophil% 0.2 % (0-1); Eosinophil# 0.09 X10^3/uL; Eosinophils% 0.9 % (0-5); Hematocrit 37.9 % (37-47); Hemoglobin 12.9 g/dL (12.0-15.0); Lymphocyte # 1.58 X10^3/ul (0.83-4.51); Lymphocyte % 15.8 % (19-41); Mean Corpuscular Hgb 28.5 pg (27.0-32.0); Mean Corpuscular Volume 83.8 fL (81-99); Monocyte# 0.57 X10^3/uL; Monocyte% 5.7 % (0-10); NRBC Flagged by Analyzer 0 % (0-5); Neutrophil # 7.67 X10^3/uL (2.7-7.7); Neutrophil % 76.4 % (47-70); Platelet Count 168 K/mm3 (150-450); RBC Distribution Width CV 14.1 % (11.6-14.6); RBC Distribution Width SD 42.6 fl (35.1-43.9); Red Blood Count 4.52 M/mm3 (4.2-5.4)
[2021-12-19] MEDS: Lactated Ringers 1,000 ML 150 ML IV (11:16)
--- NOTE | 2021-12-19 11:33 | HP.PCM.OB_ITS ---
HPI - General General Date of Admission: 12/19/21 HPI Narrative ALY DE JESUS, is a 36 F who presents for RLTCS Maternal Data Information SHAQ Calculator Estimated Delivery Date Method Current WG Current Estimate 12/26/21 LMP (Certain) 39w 0d PFSH PFSH Medical History (Updated 12/19/21 @ 11:[address] Linda Darby MD) Infertility Home Medications vitamin#30 30 mg iron-10 mg iron-folic acid 1 mg-omg3 capsule cap PO 07/01/21 [History Last Taken 12/18/21] Allergy/AdvReac Type Severity Reaction Status Date / Time No Known Allergies Allergy Verified 12/11/21 16:05 Family History Mother Diabetes Grandmother Heart disease Surgical History (Updated 12/19/21 @ 10:30 by Candelaria Corley) Previous section Status post breast reduction Social History Smoking Status: Never smoker alcohol intake: never substance use type: does not use caffeine: Yes what type of physical activity do you participate in: walking frequency: 3-4 times per week seatbelt use: always do you feel safe at home: Yes additional social history: [employer] Patient works at [employer] History 2 Elective abortions Hx Para 1 Spontaneous abortions Hx # Term Pregnancies 1 Ectopic pregnancies Hx # Pregnancies Multiple births # of living children 1 Past Pregnancies Del. Date Name GA/Weeks Outcome Route Bth Weight Infant Gen [facility] Long 41 live - full term 9lbs 5oz Male general [facility] Delivery Date: 10/21/19 IoL- post dates; LTCS- CPD, FTP, FOD, pushed for 4.5 hours Heather Dorsey Visit Details Expected Delivery Route/Plan RLTCS and BS with SM Plans Covid status: vaccinated moderna Flu vaccine: givne Tdap vaccine: given Rhogam: given LARC form signed: yes movement and labor precautions reviewed. Problem list reviewed and updated with the most current plan of care details and appropriate orders placed. Relevant counseling for the gestational age provided. Continue routine care and follow up unless otherwise noted in visit notes/problem list details OB Flowsheet Initial Weight: 190 lb Date -?-?-?-?-?-?-?-?-?-?-?-?- EGA Weight BP Urine Prot -?-?-?-?-?-?-?-?-?-?-?-?- Glucose FHR FuHt Pres Dilation -?-?-?-?-?-?-?-?-?-?-?-?- Effaced St Visit Note 07/01/21 -?-?-?-?-?-?-?-?-?-?-?-?- 14w 4d 190 lb (+0 oz) 102/84 Negative -?-?-?-?-?-?-?-?-?-?-?-?- Negative 150 -?-?-?-?-?-?-?-?-?-?-?-?- SM- ANDREAS RGI. no vb cramping doing well 07/30/21 -?-?-?-?-?-?-?-?-?-?-?-?- 18w 5d 196 lb 6 oz (+6 lb 6 oz) 118/74 Negative -?-?-?-?-?-?-?-?-?-?-?-?- Negative 156 -?-?-?-?-?-?-?-?-?-?-?-?- MH-NO VB, LOF. Starting to feel flutters. Orders for MFM anatomy US and also will need echo at 22-24 wk. 08/26/21 -?-?-?-?-?-?-?-?-?-?-?-?- 22w 4d 200 lb (+10 lb) 112/74 Negative -?-?-?-?-?-?-?-?-?-?-?-?- Negative 145 23 -?-?-?-?-?-?-?-?-?-?-?-?- SM- no vb lof cr amping 09/24/21 -?-?-?-?-?-?-?-?-?-?-?-?- 26w 5d 201 lb 6 oz (+11 lb 6 oz) 100/60 Negative -?-?-?-?-?-?-?-?-?-?-?-?- Negative 147 27 -?-?-?-?-?-?-?-?-?-?-?-?- MH-No Vb, LOF. G ood FM. Had 28 wk labs today:too early for rhogam and will repeat T&S and get rhogam plus tdap next visit. Larc done. echo ordered 10/10/21 -?-?-?-?-?-?-?-?-?-?-?-?- 29w 0d 203 lb 8 oz (+13 lb 8 oz) 110/72 Negative -?-?-?-?-?-?-?-?-?-?-?-?- Negative 145 29 -?-?-?-?-?-?-?-?-?-?-?-?- SM- no vb lof go od fm no regular ctx tdap rhogam 10/24/21 -?-?-?-?-?-?-?-?-?-?-?-?- 31w 0d 207 lb 4 oz (+17 lb 4 oz) 126/70 Trace -?-?-?-?-?-?-?-?-?-?-?--?- Negative 140 31 -?-?-?-?-?-?-?-?-?-?-?-?- SM- no vb lof go od fm no regular ctx. 11/07/21 -?-?-?-?-?-?-?-?-?-?-?-?- 33w 0d 205 lb 6 oz (+15 lb 6 oz) 114/70 Negative -?-?-?-?-?-?-?-?-?-?-?-?- Negative 140 33 -?-?-?-?-?-?-?-?-?-?-?-?- SM- no vb lof go od fm no regular ctx 12/05/21 -?-?-?-?-?-?-?-?-?-?-?-?- 37w 0d 210 lb 8 oz (+20 lb 8 oz) 120/88 Negative -?-?-?-?-?-?-?-?-?-?-?-?- Negative 145 37 Cephalic -?-?-?-?-?-?-?-?-?-?-?-?- JV- no lof ,vagi nal bleeding, or dec fm. she declines pelvic exam. no contractions 12/11/21 -?-?-?-?-?-?-?-?--?-?-?-?- 37w 6d 214 lb 8 oz (+24 lb 8 oz) 126/88 Negative -?-?-?-?-?-?-?-?-?-?-?-?- Negative 125 38 Cephalic -?-?-?-?-?-?-?-?--?-?-?-?- JV- no lof, vagi nal bleeding, or dec fm. no complaints. scheduled for next week. 12/19/21 -?-?-?-?-?-?-?-?-?-?-?-?- 39w 0d 216 lb (+26 lb) 131/93 130/83 130/83 -?-?-?-?-?-?-?-?-?-?-?-?- -?-?-?-?-?-?-?-?-?-?-?-?- NST FHR Rate Baby A Baseline: 130 Variability:: Moderate Accelerations:: 15 x 15 Decelerations:: None NST Reactive:: Yes FHR Category:: Category I Uterine Activity:: irregular ROS Constitutional Constitutional: Reports systems reviewed and no addt'l complaints, except as documented Eyes Eyes: Denies change in vision ENT HEENT: Reports systems reviewed and no addt'l complaints, except as documented; Denies headache(s) Cardiovascular Cardiovascular: Reports systems reviewed and no addt'l complaints, except as documented; Denies chest pain or dyspnea Respiratory/Chest Respiratory/Chest: Reports systems reviewed and no addt'l complaints, except as documented Gastrointestinal Gastrointestinal: Reports systems reviewed and no addt'l complaints, except as documented; Denies abdominal pain Genitourinary Genitourinary: Reports systems reviewed and no addt'l complaints, except as documented, contractions Details: present (irregular) and movement Details: present; Denies dysuria or genital lesions Musculoskeletal Musculoskeletal: Reports systems reviewed and no addt'l complaints, except as documented Neurologic Neurologic: Reports systems reviewed and no addt'l complaints, except as do cumented Endocrine Endocrinology: Reports systems reviewed and no addt'l complaints, except as documented Vital Signs Vital Signs Vital Signs: 12/19/21 10:04 12/19/21 10:20 12/19/21 10:33 Temperature 98.6 F Temperature Source Pulse Rate 77 81 Respiratory Rate Blood Pressure 131/93 H 130/83 H Blood Pressure Mean BP Systolic 131 130 BP Diastolic 93 83 Blood Pressure Source Blood Pressure Position Blood Pressure Location Oxygen Delivery Method 12/19/21 10:34 Temperature 98.6 F Temperature Source Temporal Pulse Rate 81 Respiratory Rate 16 Blood Pressure 130/83 H Blood Pressure Mean 98 BP Systolic BP Diastolic Blood Pressure Source Monitor Blood Pressure Position Semi-Fowlers Blood Pressure Location Right Arm Oxygen Delivery Method Room Air Weight Weight: 216 lb Body Mass Index (BMI) 39.4 Physical Exam Const alert, oriented x3, no apparent distress and healthy appearing HEENT normocephalic and moist oral mucous membranes Head and Scalp: atraumatic Neck full ROM, no lymphadenopathy, supple and thyroid normal General: trachea midline Lymph Lymphatic: no lymphadenopathy noted Chest inspection of chest normal Resp normal respiratory effort Cardio regular rate GI normal to inspection, nondistended, normoactive bowel sounds, soft to palpation and non-tender Inspection: gravid external exam normal Manual OB Exam: estimated gestational size appropriate, presentation cephalic, dilated, effaced and station Extremity normal to inspection General Extremity: Negative for edema Skin no rashes or lesions noted Neuro no focal motor deficits and deep tendon reflexes 2+ bilaterally Motor Exam: strength 5/5 throughout and clonus absent Psych mental status grossly normal Labs Labs Labs: Blood Type O NEGATIVE Antibody Screen NEGATIVE Hct 37.9 % (37-47) Hgb 12.9 g/dL (12.0-15.0) Obstetrics US Glucose 1 Hr 50 gm 87 mg/dL (70-140) Rhogam given: Yes Assessment & Plan (1) Sterilization: COMMENT: plan BS at time of RLTCS (2) H/O section: COMMENT: CPD, AoD @ 9cm-RLTCS and BS at 39 w/ SM scheduled for 12/19 @ 12 (3) AMA (advanced maternal age) multigravida 35+: QUALIFIERS: Trimester: second trimester Qualified Code(s): O09.522 - Supervision of elderly multigravida, second trimester COMMENT: growth US at 36 weeks, nl genetics (4) Rh negative status during : QUALIFIERS: Trimester: second trimester Qualified Code(s): O26.892 - Other specified related conditions, second trimester; Z67.91 - Unspecified blood type, Rh negative COMMENT: Rhogam givem 05/07/21; PRN, 28 weeks (5) In vitro fertilization: COMMENT: FET, PGT- needs echo between 22-24 weeks, / nl growth and echo (6) Supervision of high risk , antepartum: COMMENT: PRR SHAQ:12/26/21 PC: Long Spouse: Kang (7) : QUALIFIERS: Weeks of gestation: 37 weeks Qualified Code(s): Z3A.37 - 37 weeks gestation of COMMENT: genetics- done; carrier negative; nl anatomy (8) delivery delivered: COMMENT: roberta RLTCS 39
[2021-12-19] MEDS: Acetaminophen 500 MG Tablet 1000 MG PO ×2 (11:35→18:11)
[2021-12-19] MEDS: Cefazolin 2 GM in 0.9% Normal Saline 100 ML IV (12:14)
--- NOTE | 2021-12-19 12:36 | FALS_PTH ---
PATIENT: ALY DE JESUS LOC: [facility] U#:[id number] AGE/SX: 36/F ROOM: WP018 RE12/19/[address]: Dr. Linda Darby MD : [id number] BED: 1 DIS: 12/20/2021 SPEC #: [id number] RECD: 12/19/21 18:37 STATUS: KELLEY ESTEVEZ #: [id number] JOHNNIE: 12/19/21 12:[address]: Linda Darby DEPT: SURGICAL PATHOLOGY RECD BY: Karma Munoz ENTERED: 12/20/21 09:38 SP TYPE: FALL TUBES OTHR DR: Dr. Xander Padilla MD Tissues: Fallopian tube Procedures: Surgery Specimen Level II HEADER OPERATION: Repeat section PRE-OP DIAGNOSIS: Sterilization TISSUE SUBMITTED: Fallopian tubes, suture in right tube MICROSCOPIC DIAGNOSIS Right fallopian tube, segmental excision: Complete cross-section of fallopian tube with no pathologic change. Left fallopian tube, segmental excision: Complete cross-section of fallopian tube with no pathologic change. AM:bacilio 12/23/2021 MICROSCOPIC DESCRIPTION Slides are reviewed. GROSS DESCRIPTION Received in fixative is one container labeled with the patient's name and designated bilateral fallopian tubes, suture in right tube. The specimen consists of two fallopian tubes with an average length of 6 cm and has an average diameter of 0.7 cm. Both fallopian tubes have normal fimbriated ends. No mass lesions are identified. Drawing Frame Tender sections are submitted in two cassettes as follows: 1 - right fallopian tube, 2 - left fallopian tube. / AM:bacilio 11/22/2021 TC:4 CPT: 47944 x2
[2021-12-19] MEDS: Methylergonovine 0.2 MG/ML Ampul IM (13:23)
[2021-12-19] MEDS: 0.9% Saline Lock 10 ML Syringe IV ×3 (13:30→22:37)
[2021-12-19 13:38] LABS: Absolute Lymphocyte Count 1.34 X10^3/uL (0.83-4.51); Absolute Neutrophil Count 6.7 X10^3/uL (2.0-7.7); Basophil# 0.02 X10^3/uL; Basophil% 0.2 % (0-1); Eosinophil# 0.04 X10^3/uL; Eosinophils% 0.5 % (0-5); Hematocrit 31.4 % (37-47); Hemoglobin 10.9 g/dL (12.0-15.0); Lymphocyte # 1.34 X10^3/ul (0.83-4.51); Lymphocyte % 15.5 % (19-41); Mean Corp Hgb Conc 34.7 g/dL (32-36); Mean Corpuscular Hgb 28.6 pg (27.0-32.0); Mean Corpuscular Volume 82.4 fL (81-99); Mean Platelet Vol. 11.8 fl (6.2-12.0); Monocyte# 0.49 X10^3/uL; Monocyte% 5.7 % (0-10); NRBC Flagged by Analyzer 0 % (0-5); Neutrophil # 6.67 X10^3/uL (2.7-7.7); Neutrophil % 76.9 % (47-70); Platelet Count 152 K/mm3 (150-450); RBC Distribution Width SD 41.5 fl (35.1-43.9); Red Blood Count 3.81 M/mm3 (4.2-5.4); White Blood Count 8.7 K/mm3 (4.4-11.0)
[2021-12-19] MEDS: Carboprost Tromethamine 250 MCG/ML Ampul IM ×2 (13:42→14:00)
[2021-12-19] MEDS: Oxytocin 30 units/NS 500 ml 30 UNITS/500 ML IV.SOLN 167 UNITS IV (13:45)
--- NOTE | 2021-12-19 14:00 | OP.PCM_ITS ---
Assessment & Plan (1) delivery delivered: COMMENT: RLTCS 39 girl oscar (2) : QUALIFIERS: Weeks of gestation: 37 weeks Qualified Code(s): Z3A.37 - 37 weeks gestation of COMMENT: genetics- done; carrier negative; nl anatomy (3) Supervision of high risk , antepartum: COMMENT: PRR SHAQ:12/26/21 PC: Long Spouse: Kang (4) In vitro fertilization: COMMENT: FET, PGT- needs echo between 22-24 weeks, 10/09 nl growth and echo (5) Rh negative status during : QUALIFIERS: Trimester: second trimester Qualified Code(s): O26.892 - Other specified related conditions, second trimester; Z67.91 - Unspecified blood type, Rh negative COMMENT: Rhogam givem 05/07/21; PRN, 28 weeks (6) AMA (advanced maternal age) multigravida 35+: QUALIFIERS: Trimester: second trimester Qualified Code(s): O09.522 - Supervision of elderly multigravida, second trimester COMMENT: growth US at 36 weeks, nl genetics (7) H/O section: COMMENT: CPD, AoD @ 9cm-RLTCS and BS at 39 w/ SM scheduled for 12/19 @ 12 (8) Sterilization: COMMENT: plan BS at time of RLTCS (9) Status post bilateral salpingectomy: Maternal Data Information SHAQ Calculator Estimated Delivery Date Method Current WG Current Estimate 12/26/21 LMP (Certain) 39w 4d Final SHAQ Source: LMP Details Operative Information Pre-Operative Diagnosis: Previous Post-Operative Diagnosis: same Indications for : Repeat Elective Classification: Scheduled Type of Anesthesia: Spinal Special Medications: none Antibiotic Given: Ancef 2 grams IV x1 Drain: Nieto to straight drain Estimated Blood Loss: 900 Fluids Replaced: crystalloid Findings Description of Procedure: Spinal anesthesia was placed without difficulty. Nieto catheter was placed. The patient was placed in the dorsal supine position with leftward tilt. Patient was prepped and draped in the normal sterile fashion. Pfannenstiel skin incision was made with the scalpel and carried throu gh to the underlying layer of fascia with the scalpel. Fascia was nicked in the midline and the incision extended laterally. The rectus bellies were dissected off superiorly and inferiorly with out complication both sharply and bluntly. The peritoneum was entered digitally. The incision was stretched and a low transverse uterine incision was made with the scalpel. The 's head was delivered atraumatically followed by the anterior and posterior shoulders without complication the rest of the infant delivered. The cord was clamped and cut and the infant was handed off to awaiting nurse. The placenta was delivered spontaneously immediately following and was noted to be intact and have a three- vessel cord. The uterus was exteriorized cleared of all clots and debris, and the incision was closed in a double layer closure using #1 Monocryl. Patient had desired sterilization and was counseled preoperatively regarding irreversibility and permanency. Therefore bilateral fallopian tubes were elevated and transected across using a LigaSure device starting proximally to distally without complication the entire fallopian tubes were removed. The ovaries and fallopian tubes were noted to be within normal limits. The uterus was returned to the maternal abdomen and gutters were cleared of all clots and debris. additional suture and satnam used to obtain hemostasis of incision. The peritoneum was closed with 3-0 Monocryl in a running fashion. Gloves were changed prior to fascial closure. Fascia was closed with 0 PDS in a running fashion. Subcutaneous tissue was copiously irrigated and the skin was closed with 3-0 Monocryl in a subcuticular fashion. Mepilex dressing was applied without complication. Patient was taken to recovery in stable condition. It was discussed with the patient that based on the clinical information obtained during this encounter, combined with her history, at this time I would recommend cesareans for future deliveries if further pregnancies are desired. Amniotic Membrane Rupture Type: Artificial Amniotic Fluid Description: Clear Placenta Disposition: [facility] Cord Vessel Description: 3 Vessels Cord Entanglement: None Delayed Cord Clamping: Yes Complications Risks of Surgery Discussed w/Patient: Bleeding, Infection and Injury to surrounding structure(s) including bowel and bladder Vaginal Delivery Complication Complications: None Admit VTE Documentation VTE Present on Admission: No VTE Mechan Device Prophylaxis: SCD's Multi Select Codes Urinary/Genital Urinary/Genital CPT Codes: 66529 C/S+TL (bilateral salpingectomy) and 44652 Delivery [facility]
--- NOTE | 2021-12-19 15:18 | NURSING ---
LE: after surgery in C/S 1 fundal check +2/lower segment atony. on unit and called to C/S 1 and charge nurse @ 1318. KAYLIE Zapien and in C/S room at 1320. hand expressed large clots and large gushes of VB. Blood measured 600, blood on pads: weight 777 grams=1,377. FF @ U. ordered CBC stat, TXA, Methergine, and hemabate. Rupali started second line for TXA at 1330. started TXA in C/S room. Methergine IM at 1323. Pt stable and transferred to bed. Out of C/S room at 1336. Skin to skin with baby. In room pt continued having moderate VB. Called at 1346. in room at 1349. checked fundus and assessed VB. Order for hemabate now x1. VS stable. Pt dizzy and nauseated. Pt denies zofran at this time.
[2021-12-19] MEDS: Ketorolac 30 MG/ML Syringe IV ×2 (15:28→21:10)
[2021-12-19] MEDS: Lactated Ringers 1,000 ML 100 ML IV (15:29)
[2021-12-19 18:40] LABS: Pathology Specimen OB SEE PATHOLOGY REPORT
[2021-12-20] VITALS (14 sets, daily range): BP systolic 101–127; BP diastolic 52–74; PULSE 67–82; RESP 16–67; TEMP 36.6–37.7; O2SAT 98–100
[2021-12-20] MEDS: Acetaminophen 500 MG Tablet 1000 MG PO ×3 (00:05→12:19)
[2021-12-20] MEDS: Ketorolac 30 MG/ML Syringe IV ×2 (02:32→08:45)
[2021-12-20] MEDS: Enoxaparin 40 MG/0.4 ML Syringe SC ×2 (02:32→10:03)
[2021-12-20] MEDS: 0.9% Saline Lock 10 ML Syringe IV ×2 (02:32→08:44)
[2021-12-20 06:34] LABS: Hematocrit 27.6 % (37-47); Hemoglobin 9.1 g/dL (12.0-15.0); Mean Corpuscular Hgb 28.9 pg (27.0-32.0); Mean Corpuscular Volume 87.6 fL (81-99); Mean Platelet Vol. 11.4 fl (6.2-12.0); Platelet Count 128 K/mm3 (150-450); RBC Distribution Width CV 14.4 % (11.6-14.6); RBC Distribution Width SD 44.9 fl (35.1-43.9); Red Blood Count 3.15 M/mm3 (4.2-5.4); White Blood Count 11.3 K/mm3 (4.4-11.0)
--- NOTE | 2021-12-20 08:23 | PN.OBGYN_ITS ---
Subjective Subjective Patient doing well without complaints. Tolerating PO. Ambulating and voiding without difficulty. feeding well. Denies chest pain, shortness of breath, calf pain/swelling, fevers, chills, lightheadedness. Objective Data Objective Data Vital Signs: Vital Signs Temp Pulse Resp BP Pulse Ox 97.8 F 68 18 107/54 L 98 12/20/21 03:59 12/20/21 04:00 12/20/21 06:23 12/20/21 04:00 12/20/21 06:23 Oxygen Delivery Method Room Air Weight: 216 lb Body Mass Index (BMI) 39.4 Intake & Output: Intake and Output for Last 24 Hours 12/18/21 12/19/21 12/20/21 23:59 23:59 23:59 Intake Total 3382.3 / 3382.3 Output Total 1450 / 1450 200 / 200 Balance 1932.3 / 1932.3 -200 / -200 Lab / Micro Data Result Diagrams: 12/20/21 06:20 Labs: Laboratory Results - last 24 hr 12/19/21 10:15: WBC 10.0, RBC 4.52, Hgb 12.9, Hct 37.9, MCV 83.8, MCH 28.5, MCHC 34.0, RDW Std Deviation 42.6, RDW Coeff of Melissa 14.1, Plt Count 168, MPV 12.0, Immature Gran % (Auto) 1.000 H, Neut % (Auto) 76.4 H, Lymph % (Auto) 15.8 L, [place] % (Auto) 5.7, Eos % (Auto) 0.9, Baso % (Auto) 0.2, Absolute Neuts (auto) 7.7, Absolute Lymphs (auto) 1.58, Nucleated RBC % 0 12/19/21 10:15: Blood Type O NEGATIVE, Antibody Screen NEGATIVE 12/19/21 13:30: WBC 8.7, RBC 3.81 L, Hgb 10.9 L, Hct 31.4 L, MCV 82.4, MCH 28.6, MCHC 34.7, RDW Std Deviation 41.5, RDW Coeff of Melissa 14.0, Plt Count 152, MPV 11.8, Immature Gran % (Auto) 1.200 H, Neut % (Auto) 76.9 H, Lymph % (Auto) 15.5 L, [place] % (Auto) 5.7, Eos % (Auto) 0.5, Baso % (Auto) 0.2, Absolute Neuts (auto) 6.7, Absolute Lymphs (auto) 1.34, Nucleated RBC % 0 12/19/21 15:20: Screen NEGATIVE, Baby's Blood Type A POSITIVE, Baby's [place] NEGATIVE 12/20/21 06:20: WBC 11.3 H, RBC 3.15 L, Hgb 9.1 L, Hct 27.6 L, MCV 87.6 D, MCH 28.9, MCHC 33.0, RDW Std Deviation 44.9 H, RDW Coeff of Melissa 14.4, Plt Count 128 L, MPV 11.4 Micro: Microbiology 12/19/21 10:15 Nasal Secretion SARS-CoV-2 Antigen (Rapid) - Final ROS Constitutional Constitutional: Reports systems reviewed and no addt'l complaints, except as documented Cardiovascular Cardiovascular: Reports systems reviewed and no addt'l complaints, except as documented Respiratory/Chest Respiratory/Chest: Reports systems reviewed and no addt'l complaints, except as documented Gastrointestinal Gastrointestinal: Reports systems reviewed and no addt'l complaints, except as documented Physical Exam Const alert, oriented x3 and no apparent distress HEENT Head and Scalp: atraumatic Resp normal respiratory effort GI soft to palpation and non-tender Inspection: incision intact, healing well and drainage (none) Bimanual Exam - Vag & Uterus: uterus non-tender Uterus Palpation: uterus fundus firm (below Umbilicus) Assessment & Plan (1) [facility] Rh negative status during : QUALIFIERS: Trimester: second trimester Qualified Code(s): O26.892 - Other specified related conditions, second trimester; Z67.91 - Unspecified blood type, Rh negative COMMENT: Rhogam givem 05/07/21; PRN, 28 weeks PLAN: routine post csection care [facility]
--- NOTE | 2021-12-20 08:23 | PCM.DC ---
Discharge Instructions Diet Discharge Diet: No restrictions Activity Discharge Activity: May Not Drive (for 2 weeks or while taking narcotic pain medications.), May Shower and May Take a Tub Bath (in 7 days) May shower in (days): 0 May resume sexual activity in: 4-6 weeks Weight Bearing Status: Full weight bearing Lifting Restrictions: 20 pounds Dressing / Incision Call your doctor if your incision/area has: Continuous Slow Oozing, Sudden Increased Bleeding, Increased Pain/ Swelling, Increased Redness and Foul Smelling Discharge Call your doctor if you observe: Fever of 101 or Higher and Using more than 1 pad per hour (for 2 hours) Suture Line Care: Avoid Pulling/Pushing and Avoid Pinching/Bending Cleanse incision/area with: Soap & Water and Keep Dressing Clean & Dry Follow Up Care Please Follow Up With: Linda Darby MD When: Call [phone] to make an appointment for an incision check in 1-2 weeks. Test Results: Test results from this visit will be discussed in further detail at your follow-up appointment, if applicable. Discharge Plan Admission Admit Date/Time: 12/19/21 09:55 Attending Provider: Linda Darby Primary Care Provider: Xander Padilla Discharge Orders/Prescriptions Prescriptions: New oxycodone-acetaminophen [Percocet] 5-325 mg tablet 1 tab PO Q6H PRN (Reason: pain) 7 Days Qty: 20 RF: 0 naproxen [naproxen] 500 MG tablet 500 mg PO BID PRN PRN (Reason: Pain) Qty: 30 RF: 1 No Action PNV #[id number] 30 mg iron-10 mg iron-1 mg capsule PO RF: 0 Referrals / Follow Up: Xander Padilla MD [Primary Care Provider] - Disposition Disposition (needs filled in before D/C Order can be placed): Home, Self Care
[2021-12-20] MEDS: Senna/Docusate Sodium 1 Tablet PO (10:02)
[2021-12-20] MEDS: Naproxen 500 MG Tablet PO (13:53)
== END 2021-12-20 17:35 | disposition home or self-care (01) | DRG 785 ==
PROVIDERS: Admitting Provider Obstetrics & Gynecology; PCP Family Medicine; Visit Provider Obstetrics & Gynecology
PROC: 10D00Z1 Extraction of Products of Conception, Low, Open Approach (ICD-10-PCS; CPT 59514; principal; 2021-12-19 11:45)
DX: O34.211 Maternal care for low transverse scar from previous cesarean delivery (principal); O26.893 Other specified pregnancy related conditions, third trimester; Z67.41 Type O blood, Rh negative; Z37.0 Single live birth; Z3A.37 37 weeks gestation of pregnancy; Z30.2 Encounter for sterilization
CPT/HCPCS: 59025; 85025; 85027; 85461; 86850; 86900; 86901; 87426; 88302; 90384; 99218; 99251; J7120; A4216; G0378; G0463; J2405; J2790

== ENCOUNTER → 2023-02-10 | Outpatient (CLI) | payer OTHER, SELFPAY ==
[2023-02-18 17:08] LABS: HPV APTIMA, High Risk Negative (Negative)
== END | disposition home or self-care (01) ==
LOC: LABSPEC 17:08
PROVIDERS: PCP Family Medicine; Referring Provider Obstetrics & Gynecology; Visit Provider Obstetrics & Gynecology
DX: Z12.4 Encounter for screening for malignant neoplasm of cervix (principal)
CPT/HCPCS: 87624; 88175; G0145